=== PATIENT | male | born 1965 | race Hispanic/Latino ===

== ENCOUNTER → 2020-12-01 10:46 | Outpatient (CLI) | payer OTHER, SELFPAY ==
--- NOTE | 2020-12-01 | DI.MRI.S_ITS ---
PROCEDURE: MR LUMBAR SPINE WO CON INDICATIONS: STENOSIS TECHNIQUE: Noncontrast sagittal T1 spin echo and T2 fast echo, sagittal STIR, axial T1 and T2 fast spin echo through the lumbar spine. In cases with scoliosis, additional coronal T2 fast spin echo may be performed. COMPARISON: None. FINDINGS: Image quality: Excellent. Alignment and Curvature: No plain films are available for comparison, for numbering purposes. Thus, for the purposes of this examination, 5 lumbar type vertebral bodies will be presumed, as denoted on the montage panel. This should be confirmed and correlated with plain films, prior to any lumbar spinal intervention. Mild grade 1 retrolisthesis of L3 on L4 and L5 on S1. Bone Marrow: Marrow is of normal overall signal. No acute vertebral body compression fractures. Mild reactive signal within the endplates adjacent to the L2-L3, L3-L4, L4-L5, and L5-S1 intervertebral discs. Spinal Cord: Conus medullaris terminates at the mid L1 level. Visualized cord demonstrates normal signal and size. Paraspinous Soft Tissues: No paravertebral masses. T12-L1: Mild disc height loss. No significant canal, or foraminal stenosis. L1-L2: Moderate disc height loss. Mild facet hypertrophy. Mild epidural lipomatosis. Mild canal stenosis. Mild bilateral foraminal stenosis. L2-L3: Mild disc desiccation and diffuse disc bulge. Mild facet and ligamentum flavum hypertrophy. Mild epidural lipomatosis. Mild canal stenosis. Mild bilateral foraminal stenosis. L3-L4: Moderate disc desiccation. Mild disc height loss and diffuse disc bulge. Mild facet and ligamentum flavum hypertrophy. Mild epidural lipomatosis. Mild canal stenosis. Moderate subarticular foraminal stenosis bilaterally. L4-L5: Moderate disc desiccation. Mild disc height loss and diffuse disc bulge. Moderate facet and ligamentum flavum hypertrophy. Mild epidural lipomatosis. Severe canal stenosis. Moderate subarticular foraminal stenosis bilaterally. L5-S1: Moderate disc height loss and desiccation. Mild diffuse disc bulge with superimposed right posterolateral and far lateral protrusion. Mild bilateral facet hypertrophy. Mild canal stenosis. Moderate left and severe right foraminal stenosis. Right L5 nerve root compression. IMPRESSION: 1. Multilevel degenerative disc and facet disease, as well as ligamentum flavum hypertrophy and epidural lipomatosis. 2. Multilevel canal stenoses, worst at L4-L5 where there is severe canal stenosis. 3. Multilevel foraminal stenoses, worst at L5-S1 on the right where there is associated intraforaminal nerve root compression. Dictated by: Dwight Méndez M.D. on 12/01/2020 at 13:42 Approved by: Dwight Méndez M.D. on 12/01/2020 at 13:45
--- NOTE | 2020-12-01 | DI.MRI.S_ITS ---
PROCEDURE: MR CERVICAL SPINE WO CON INDICATIONS: STENOSIS TECHNIQUE: Noncontrast sagittal T1 spin echo and T2 fast spin echo, sagittal STIR, foraminal oblique sagittal T2 fast spin echo, and axial gradient echo or T2 fast spin echo through the cervical spine. COMPARISON: None. FINDINGS: Image quality: Degraded by artifact. Alignment and Curvature: There is loss of normal cervical lordosis. Mild grade 1 retrolisthesis of C3 on C4 and C4 on C5. Bone Marrow: Marrow demonstrates normal overall signal. Mild reactive signal within the endplates adjacent to the C2-C3, C3-C4, C4-C5, C5-C6, and C6-C7 intervertebral discs. Spinal Cord: Visualized spinal cord has normal size and signal. No cerebellar tonsillar herniation. Paraspinous Soft Tissues: No paravertebral masses. Prevertebral soft tissues are normal in thickness. C2-C3: Congenital canal stenosis. Mild disc height loss and desiccation. Mild facet and uncovertebral hypertrophy. Overall mild canal stenosis. Mild bilateral foraminal stenosis. C3-C4: Congenital canal stenosis. Moderate disc desiccation. Mild disc height loss and diffuse disc bulge with superimposed left paracentral protrusion. Mild facet and uncovertebral hypertrophy bilaterally. Moderate to severe canal stenosis. Mild left cord flattening. Moderate right and mild left foraminal stenosis. C4-C5: Congenital canal stenosis. Mild disc height loss. Moderate disc desiccation. Mild diffuse disc bulge with superimposed central protrusion. Mild facet and uncovertebral hypertrophy bilaterally. Severe canal stenosis. Moderate cord flattening. Moderate right and mild left foraminal stenosis. C5-C6: Congenital canal stenosis. Moderate disc desiccation. Mild diffuse disc bulge with superimposed left paracentral protrusion. Mild facet and uncovertebral hypertrophy bilaterally. Severe canal stenosis. Mild cord flattening. Moderate left greater than right foraminal stenosis. C6-C7: Congenital canal stenosis. Mild disc height loss and desiccation. Mild diffuse disc bulge. Mild facet and uncovertebral hypertrophy bilaterally. Moderate to severe canal stenosis. Mild left greater than right foraminal stenosis. C7-T1: Mild disc desiccation and diffuse disc bulge. Congenital canal stenosis. Moderate canal stenosis. Mild foraminal stenosis bilaterally. IMPRESSION: 1. Diffuse congenital canal stenosis with superimposed disc and facet disease, as well as uncovertebral hypertrophy. 2. Multilevel canal stenosis, worst at C3-C4, C4-C5, and C5-C6, where there is associated cord flattening. 3. Multilevel foraminal stenoses, worst at C3-C4, C4-C5, and C5-C6, where there are moderate foraminal stenosis as described above. Dictated by: Dwight Méndez M.D. on 12/01/2020 at 13:35 Approved by: Dwight Méndez M.D. on 12/01/2020 at 13:42
== END ==
DX: M50.21 Other cervical disc displacement, high cervical region; M48.061 Spinal stenosis, lumbar region without neurogenic claudication; M48.07 Spinal stenosis, lumbosacral region; M51.36 Other intervertebral disc degeneration, lumbar region; M51.37 Other intervertebral disc degeneration, lumbosacral region; M48.00 Spinal stenosis, site unspecified
CPT/HCPCS: 72141; 72148

== ENCOUNTER → 2021-08-10 13:46 | Outpatient (CLI) | payer BC, SELFPAY ==
[2021-08-10 15:36] LABS: BUN Creatinine Ratio 20.5 (6-22); Blood Urea Nitrogen 23 mg/dL (9-20); Calcium 9.3 mg/dL (8.4-10.2); Carbon Dioxide 23 mmol/L (22-32); Chloride 104 mmol/L (98-107); Estimated Glomerular Filt Rate > 60.0 mL/min (>60); Glucose 92 mg/dL (70-100); HEMOLYSIS < 15 (0-50); Potassium 4.4 mmol/L (3.4-5.1); Sodium 138 mmol/L (137-145)
[2021-08-10 16:07] LABS: Prostate Specific Antigen 0.934 ng/mL (0.10-4.00)
== END ==
PROVIDERS: Referring Provider Urology; Visit Provider Urology
DX: R31.21 Asymptomatic microscopic hematuria (principal); R39.9 Unspecified symptoms and signs involving the genitourinary system; R39.13 Splitting of urinary stream; Z80.42 Family history of malignant neoplasm of prostate
CPT/HCPCS: 36415; 51798; 80048; 81002; 84153

== ENCOUNTER → 2021-08-12 09:46 | Outpatient (CLI) | payer BC, SELFPAY ==
--- NOTE | 2021-08-12 09:51 | DI.CT.S_ITS ---
PROCEDURE: CT ABDOMEN PELVIS WO/W CON INDICATIONS: Hematuria/irritative symptoms TECHNIQUE: Optional 5 mm thick noncontrast images acquired from the diaphragm to the symphysis pubis. After the administration of intravenous contrast, 5 mm thick images acquired from the diaphragm to the symphysis pubis after a 10-minute delay. 2 mm thick coronal and sagittal reformats were then performed of the kidneys and ureters. For radiation dose reduction, the following was used: automated exposure control, adjustment of mA and/or kV according to patient size. COMPARISON: None. FINDINGS: Image quality: Excellent. Lung bases: Lung bases are clear. Heart size is normal. Urinary system: Both kidneys are normal in size, without hydronephrosis or nephrolithiasis on pre-contrast images. No perinephric fat stranding. There is normal bilateral renal enhancement. Renal calyces appear normal in morphology when filled with contrast. Opacified portions of both ureters demonstrate normal caliber. Bladder wall thickness is normal. No calcified bladder stones. Mild indentation of the inferior bladder wall secondary to prominent prostate gland. Other solid organs: Liver is normal in size and enhancement. Gallbladder contains multiple hyperdensities likely representing gallstones. No CT evidence for acute cholecystitis. Biliary system is non dilated. Pancreas enhances normally. Spleen is normal in size and enhancement. No adrenal nodules. Peritoneum and bowel: Bowel loops demonstrate normal wall thickness and caliber. No free fluid or air. Colonic diverticulosis without acute diverticulitis. Normal appendix. Nodes and vessels: No retroperitoneal or mesenteric adenopathy by size criteria. Aorta and inferior vena cava are normal in size. Abdominal wall: There is a fat-containing umbilical hernia without acute inflammation. Pelvis: No pathologic free pelvic fluid. No inguinal hernias. No pelvic adenopathy. Bones: No suspicious bony lesions. No acute vertebral body compression fractures. IMPRESSION: 1. Negative CT IVP without evidence for urolithiasis or obstructive uropathy. No evidence of suspicious uroepithelial abnormality. 2. Mild prostatomegaly. 3. Colonic diverticulosis without acute diverticulitis. 4. Cholelithiasis without CT evidence for acute cholecystitis. Dictated by: Dayo Bowman M.D. on 08/12/2021 at 10:40 Approved by: Dayo Bowman M.D. on 08/12/2021 at 10:47
[2021-08-12 11:59] LABS: Prostate Specific Antigen 0.928 ng/mL (0.10-4.00)
== END ==
PROVIDERS: PCP Internal Medicine; Referring Provider Urology; Visit Provider Urology
DX: N40.0 Benign prostatic hyperplasia without lower urinary tract symptoms (principal); R31.9 Hematuria, unspecified; R39.9 Unspecified symptoms and signs involving the genitourinary system; K80.20 Calculus of gallbladder without cholecystitis without obstruction; K57.90 Diverticulosis of intestine, part unspecified, without perforation or abscess without bleeding; K42.9 Umbilical hernia without obstruction or gangrene; Z80.42 Family history of malignant neoplasm of prostate
CPT/HCPCS: 36415; 74178; 84153; Q9967

== ENCOUNTER → 2023-03-08 10:09 | Outpatient (CLI) | payer BC, SELFPAY ==
[2023-03-08 11:59] LABS: Prostate Specific Antigen 4.46 ng/mL (0.10-4.00)
== END ==
PROVIDERS: PCP Internal Medicine; Referring Provider Urology; Visit Provider Urology
DX: R97.20 Elevated prostate specific antigen [PSA] (principal); R31.21 Asymptomatic microscopic hematuria; R39.9 Unspecified symptoms and signs involving the genitourinary system; Z80.42 Family history of malignant neoplasm of prostate
CPT/HCPCS: 36415; 81002; 84153

== ENCOUNTER → 2023-03-13 16:16 | Outpatient (CLI) | payer BC, SELFPAY ==
--- NOTE | 2023-03-13 16:17 | DI.MRI.S_ITS ---
PROCEDURE: MR PELVIC PROSTATE PROTOCOL INDICATIONS: Elevated PSA TECHNIQUE: Coronal HASTE, axial T1 FSE with fat saturation, 3-plane nonbreath-hold T2 FSE. After the administration of contrast, dynamic axial, delayed axial and coronal VIBE or 2-D FLASH with fat saturation through the pelvis. Optional diffusion weighted imaging and ADC may be performed. COMPARISON: None. FINDINGS: Image quality: Diffusion weighted and dynamic contrast enhanced images are diagnostic. Prostate: Gland size is 5.3 x 4.2 x 6.4 cm; ellipsoid gland volume is 73 mL. Lesion 1: Location: Right medial peripheral zone, apex (series 5, image 19 and series 7, image 9). Size: 1.1 x 0.7 T2 signal: Moderately hypointense DWI: Markedly hyperintense ADC: Mildly hypointense Enhancement: Positive Extracapsular extension: No PI-RADS score: 4 Genitourinary system: Bladder wall thickness is normal. Distal ureters are non distended. Bowel and peritoneum: No pathologic free pelvic fluid. Inferior colon and small bowel loops are normal in caliber. Nodes and vessels: No pelvic or inguinal adenopathy by size criteria. Iliac vessels are normal in caliber. Soft tissues: No inguinal hernias. Bones: Marrow demonstrates normal overall signal, without lesions to suggest metastases. IMPRESSION: PI-RADS 4 lesion in the right peripheral zone of the apex (PI-RADS 3 score upgraded due to enhancement). No extracapsular extension. No pelvic adenopathy. No aggressive osseous abnormality. Dictated by: Aime Copeland M.D. on 03/14/2023 at 8:34 Approved by: Aime Copeland M.D. on 03/14/2023 at 8:54
== END ==
PROVIDERS: PCP Internal Medicine; Referring Provider Urology; Visit Provider Urology
DX: N42.9 Disorder of prostate, unspecified (principal); R97.20 Elevated prostate specific antigen [PSA]
CPT/HCPCS: 72197; A9579

== ENCOUNTER → 2023-07-21 08:15 | Outpatient (CLI) | payer BC, SELFPAY ==
[2023-07-25 06:36] LABS: PSA Free % 35.8 % (.); PSA, Total 1.2 ng/mL (0.0-4.0)
== END ==
PROVIDERS: PCP Internal Medicine; Referring Provider Urology; Visit Provider Urology
DX: R97.20 Elevated prostate specific antigen [PSA] (principal); Z80.42 Family history of malignant neoplasm of prostate
CPT/HCPCS: 36415; 84153; 84154

== ENCOUNTER → 2024-01-10 08:32 | Outpatient (CLI) | payer BC, SELFPAY ==
--- NOTE | 2024-01-10 08:34 | DI.RAD.S_ITS ---
PROCEDURE: XR KNEE RT 3V INDICATIONS: Pain in right knee TECHNIQUE: 3 views of the knee were acquired. COMPARISON: None. FINDINGS: Bones: No fractures or dislocations. No suspicious bony lesions. Fixation plate and screws are seen within the lower femur. 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 Incidental flabella. Incidental patella Shania. Patellar enthesophytes. Soft tissues: No sizable joint effusion. No suspicious soft tissue calcifications. IMPRESSION: 1. No evidence for an acute fracture or dislocation. 2. 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 Dictated by: Jorge A Stein M.D. on 01/10/2024 at 14:15 Approved by: Jorge A Stein M.D. on 01/10/2024 at 16:13
== END ==
PROVIDERS: PCP Internal Medicine; Referring Provider Internal Medicine; Visit Provider Internal Medicine
DX: M17.11 Unilateral primary osteoarthritis, right knee (principal); M11.261 Other chondrocalcinosis, right knee; M25.561 Pain in right knee
CPT/HCPCS: 73562

== ENCOUNTER → 2024-10-01 12:41 | Outpatient (CLI) | payer BC, SELFPAY ==
[2024-10-03 07:09] LABS: PSA Free % 37.3 % (.); PSA, Total 1.1 ng/mL (0.0-4.0)
== END ==
PROVIDERS: PCP Family Medicine; Referring Provider Family Medicine; Visit Provider Urology
DX: R97.20 Elevated prostate specific antigen [PSA] (principal)
CPT/HCPCS: 84153; 84154